=== PATIENT | male | born 1975 | race Caucasian/White ===

== ENCOUNTER 2022-02-02 15:57 | Inpatient (IN) | payer BC ==
[~2022-02-02] VITALS: Ht 180.3 cm; Wt 47.3 kg
--- NOTE | 2022-02-02 16:08 | NUR ---
Patient to ER bed 5 to gown for evaluation. Side rails up. Report given to Joyce FERREIRA.
--- NOTE | 2022-02-02 16:10 | NUR ---
ER at bedside examining patient.
[2022-02-02 16:13] VITALS: BP_SYST 102
[2022-02-02] MEDS ORDERED: FOLIC ACID 5 MG/ML VIAL IV ONE (16:15)
[2022-02-02] MEDS ORDERED: THIAMINE HCL 100 MG/ML VIAL IM ONE (16:15)
--- NOTE | 2022-02-02 16:15 | NUR ---
Pt BIBA ACLS coming from home due to family stating pt is more altered than usual. Pt has hx of alcohol abuse liver issues. Pt is A&Ox1. Confused to responding all questions except for his name. Skin intact. VSS. No chest pain and no sob. Bed in lowest position. Pt has a 18g IV placed by medics in route on left forearm.
--- NOTE | 2022-02-02 17:02 | NUR ---
Covid swab and MRSA swab done and sent to lab.
--- NOTE | 2022-02-02 17:05 | NUR ---
Accucheck done and results were 95
[2022-02-02 17:12] LABS: HEMATOCRIT 31.7 % (36-54); HEMOGLOBIN 10.6 g/dL (14.0-18.0); MEAN CORPUSCULAR HEMOGLOBIN 35 pg (27-31); MEAN CORPUSCULAR HGB CONC 34 % (32-36); MEAN CORPUSCULAR VOLUME 104 fL (79.0-98.0); PLATELET COUNT (AUTO) 147 K/uL (130-430); RED BLOOD CELL COUNT(AUTO) 3.06 MIL/uL (4.2-6.2); RED CELL DISTRIBUTION WIDTH 22.5 % (9.0-15.0); WHITE BLOOD COUNT (AUTO) 3.8 K/uL (4.8-10.8)
[2022-02-02 17:14] LABS: ANION GAP 8 (5-15); CALCIUM 7.4 mg/dL (8.4-11.0); CHLORIDE 102 mmol/L (98-107); CREATININE 0.57 mg/dL (0.55-1.30); GLUCOSE 105 mg/dL (70-99); INR 1.1 (0.80-1.20); POTASSIUM 3.8 mmol/L (3.5-5.1); PROTHROMBIN TIME 11.3 SECS (9.5-12.5); SODIUM SERUM 135 mmol/L (136-145)
[2022-02-02] MEDS ORDERED: LORazepam 2 MG/ML VIAL ONE (17:19)
[2022-02-02 17:21] LABS: ACETAMINOPHEN 2 ug/mL (1-30); ALANINE AMINOTRANSFERASE 37 U/L (12-78); ALBUMIN 2.3 g/dL (3.4-4.8); ASPARTATE AMINOTRANSFERASE 65 U/L (10-37); TOTAL BILIRUBIN 1.3 mg/dL (0.0-1.0)
--- NOTE | 2022-02-02 17:25 | NUR ---
Pt had a witnessed seizure. Dr. Horn notified. at bedside. 2mg Ativan IV medication given and seizure pads placed. Pt placed in semifowlers position. VSS. Dr. Horn at bedside.
[2022-02-02 17:26] LABS: ALCOHOL, BLOOD < 3 mg/dL (<10); GFR AFRICAN AMERICAN 200 mL/min (>90)
--- NOTE | 2022-02-02 17:29 | NUR ---
Accucheck done again and results were 90.
[2022-02-02] MEDS ORDERED: LORazepam 2 MG/ML VIAL IVP ONE (17:30)
--- NOTE | 2022-02-02 17:34 | NUR ---
Personal Belonging List Completed.
[2022-02-02 18:02] LABS: UREA NITROGEN, BLOOD 4 mg/dL (8-21)
[2022-02-02] MEDS ORDERED: NACL 0.9% 1,000 ML IV ONE ×2 (19:15→20:15)
--- NOTE | 2022-02-02 19:18 | NUR ---
rec rprt from Carmela FERREIRA
[2022-02-02 19:29] LABS: BAND % (MANUAL) 1 % (0-6); BASOPHILS % (MANUAL) 0 % (0-2); EOSINOPHILS % (MANUAL) 0 % (0-7); LYMPHOCYTES % (MANUAL) 18 % (20-46); MONOCYTES % (MANUAL) 13 % (0-11)
--- NOTE | 2022-02-02 20:10 | NUR ---
Admit bed requested Patient will be admitted to care of [ [facility]]. Admitted to [TELEMETRY] unit. Diagnosis [NEW SEIZURE ONSET] Inpatient (Yes or No) [YES] Observation (Yes or No) [NO] Orientation concerns or request close to nursing station (Yes or No) [NO] Covid Status [NEG] On vent or bipap [NO] Isolation requirements [NO] Needs a sitter [NO] From Home (Yes or if No enter name of facility) [HOME] Requires Dialysis (Yes or No) [NO] Med Rec Completed (Yes of No) [YES]
--- NOTE | 2022-02-02 20:12 | NUR ---
PT STATED DOES NOT TAKE ANY DAILY MEDICATIONS. RECNCILE OF MEDS WAS NOT DONE FOR THIS REASON
[2022-02-02] MEDS ORDERED: MUPIROCIN 2% TOPICAL OINTMENT 22 GM NS PRN (20:15)
[2022-02-02] MEDS ORDERED: MAGNESIUM SULFATE 50 ML IV PRN (20:15)
[2022-02-02] MEDS ORDERED: ONDANSETRON HCL 4 MG/2 ML VIAL IVP PRN (20:15)
[2022-02-02] MEDS ORDERED: LORazepam 2 MG/ML VIAL IVP PRN ×2 (20:15)
[2022-02-02] MEDS ORDERED: ACETAMINOPHEN 325 MG TABLET PO PRN (20:15)
[2022-02-02] MEDS ORDERED: DOCUSATE SODIUM 100 MG CAPSULE PO PRN (20:15)
[2022-02-02] MEDS ORDERED: MORPHINE 2 MG/ML INJ. SYRINGE IVP PRN ×2 (20:15)
--- NOTE | 2022-02-02 20:40 | NUR ---
PT WAS NOTICED TO HAVE VARIABLE HR WITH VARIABLE IN O2 SATURATION, PT CONSICIENSE WAS ABLE TO ANSWER QUESTIONS AND WAS AOX4, VITAL SIGNS ARE STABLE. PT CONTINUES TO BE ON SEIZURE PRECAUTIONS. DR CALVO NOTIFIED. WILL CONTINUE TO MONITOR CLOSELY
--- NOTE | 2022-02-02 22:10 | NUR ---
PT IN BED RESTING COMFORTABLY, BED LOWERED, LOCKED AND RAILS UP. PT IS ALERT AND ORIENTED X4, DENIES ANY PAIN. VS ARE WITHIN NORMAL LIMITS WILL CONTINUE TO MONITOR
[2022-02-02 23:45] VITALS: BP_SYST 120
--- NOTE | 2022-02-02 23:50 | NUR ---
ADMISSION NOTE Received patient from ER via gurney. Patient admitted with diagnosis of new onset seizure. Patient is awake and alert. Patient oriented to hospital room, call light, toileting, pain management and safety-teach back done. Personal belongings checked and Belongings List documented. Call light within reach. Seizure precautions in place.
--- NOTE | 2022-02-03 | NUR ---
Report given to Fiona FERREIRA
[2022-02-03] MEDS: chlordiazePOXIDE HCL 25 MG CAPSULE PO SCH ×4 (01:23→22:06)
--- NOTE | 2022-02-03 07:30 | NUR ---
Closing Patient resting in bed, unlabored breathing on room air. Alert to name and place, states the year is 1974, and that he is here because of vomiting. 1 L NS infusing. Patient had water and small amount of jello, tolerated well with no coughing but needed some assistance. Seizure pads in place, suction set up at bedside. Call light in reach, exit alarm on.
--- NOTE | 2022-02-03 07:30 | NUR ---
RECEIVED PT AAOX4 SLOW TO SPEAK, CAN FOLLOW COMMANDS AND COMMUNICATE NEEDS. SEIZURE PRECAUTIONS IN PLACE. TELE MONITOR READING NSR. RESP E/U. LUNG SOUNDS CTA, ON R/A. NO COUGH OR SOB. ABODMEN SOFT, NONDISTENDED. BOWEL SOUNDS ACTIVE X4 QUADS. DENIES N/V/D/C. DISTAL PULSES NORMAL, SKIN CDI, NO EDEMA. PT HAS LH 22 G WITH NS RUNNING AT 100ML/HOUR. SITE WNL, DRESSING CDI. PT DENIES PAIN. CALL LIGHT WITHIN REACH. BED IN LOWEST POSITION, BED ALARM ON.
[2022-02-03 07:34] LABS: BASOPHILS % (AUTO) 0.6 % (0.0-2.0); EOSINOPHILS % (AUTO) 0.6 % (0.0-4.0); HEMATOCRIT 29.7 % (36-54); HEMOGLOBIN 9.9 g/dL (14.0-18.0); LYMPHOCYTES # (AUTO) 0.8 K/uL (1.0-5.5); MEAN CORPUSCULAR HEMOGLOBIN 35 pg (27-31); MEAN CORPUSCULAR HGB CONC 33 % (32-36); MEAN CORPUSCULAR VOLUME 105 fL (79.0-98.0); MONOCYTES % (AUTO) 22.9 % (1.7-9.3); NEUTROPHILS # (AUTO) 2.6 K/uL (1.8-7.7); NEUTROPHILS % (AUTO) 57.9 % (40.0-70.0); PLATELET COUNT (AUTO) 135 K/uL (130-430); RED BLOOD CELL COUNT(AUTO) 2.83 MIL/uL (4.2-6.2); RED CELL DISTRIBUTION WIDTH 22.4 % (9.0-15.0); WHITE BLOOD COUNT (AUTO) 4.6 K/uL (4.8-10.8)
[2022-02-03 08:00] VITALS: BP_SYST 123
[2022-02-03 08:00] LABS: CREATININE 0.49 mg/dL (0.55-1.30); POTASSIUM 3.8 mmol/L (3.5-5.1)
--- NOTE | 2022-02-03 08:20 | NUR ---
PT NOTED UNABLE TO TOLERATE REGULAR DIET, DUE TO DIFFICULTY CHEWING, PER ORDER TO ADVANCE DIET TOLERATE, DIET HAS BEEN CHANGED TO CHOPPED. PT MADE AWARE.
--- NOTE | 2022-02-03 08:55 | NUR ---
REPORTED TO DR. WILSON, PT HAS HAD PAST HX OF INCREASED AMMONIA BUT NO LAB FOR AMMONIA HAS BEEN TAKEN. PT IS SLOW TO SPEAK AND MOVE BUT CAN ANSWER QUESTIONS APPROPRIATELY AT THIS TIME. PT SWALLOW FINE BUT CAN NOT CHEW WELL DIET HAS BEEN CX TO CHOPPED. NNOS.
--- NOTE | 2022-02-03 08:57 | NUR ---
PT SITTING UP IN BED EATING BREAKFAST, ALL FOOD CHOPPED TO SMALL PIECES FOR PT. PT GIVEN SCHEDULED MED AND TOLERATED WELL, DENIES PAIN. PT GIVEN EDUCATION ON S/S OF IMPENDING SEIZURE, PT ORIENTED TO CALL LIGHT. DENIES PAIN.
[2022-02-03] MEDS ORDERED: levETIRAcetam 1,500 MG in NS 85 ML IV ONE (10:00)
--- NOTE | 2022-02-03 11:25 | NUR ---
PER REQUEST PT'S MOTHER ZAY CALLED AND MADE AWARE TO PT'S POC.
[2022-02-03 12:22] VITALS: BP_SYST 120
--- NOTE | 2022-02-03 16:01 | NUR ---
PT RECEIVING EEG AT THIS TIME.
[2022-02-03 16:55] VITALS: BP_SYST 128
--- NOTE | 2022-02-03 17:15 | NUR ---
PT'S BEDDING AND GOWN CHANGE, PT ABLE TO TURN AND REPOSITION IN BED.
--- NOTE | 2022-02-03 17:30 | NUR ---
PT RECEIVING U/S AT THIS TIME.
[2022-02-03 19:01] VITALS: BP_SYST 128
--- NOTE | 2022-02-03 19:28 | NUR ---
ENDORSED ALL CARE TO JHON DURAN. ALL QUESTIONS AND CONCERNS ADDRESSED.
[2022-02-03] MEDS: levETIRAcetam 1,500 MG in NS 85 ML IV SCH (22:06)
[2022-02-04] MEDS: ZOLPIDEM TARTRATE 5 MG TABLET PO PRN ×2 (01:20→07:11)
--- NOTE | 2022-02-04 07:35 | NUR ---
OPEN NOTE Patient laying in bed asleep but easily arousal. No notable signs of distress noted. Patient has no shortness of breath. Patient does not show any signs of pain at this time. Urinal near patients reach and emptied with yellow urine. Patient safety checks in place with call light in place. seizure precautions in place.
[2022-02-04 07:48] LABS: BASOPHILS % (AUTO) 0.9 % (0.0-2.0); EOSINOPHILS # (AUTO) 0.1 K/uL (0.0-0.4); EOSINOPHILS % (AUTO) 1.4 % (0.0-4.0); HEMATOCRIT 29.8 % (36-54); HEMOGLOBIN 10.2 g/dL (14.0-18.0); MEAN CORPUSCULAR HEMOGLOBIN 36 pg (27-31); MEAN CORPUSCULAR HGB CONC 34 % (32-36); MEAN CORPUSCULAR VOLUME 104 fL (79.0-98.0); MONOCYTES % (AUTO) 26.1 % (1.7-9.3); NEUTROPHILS # (AUTO) 1.9 K/uL (1.8-7.7); NEUTROPHILS % (AUTO) 47.6 % (40.0-70.0); PLATELET COUNT (AUTO) 141 K/uL (130-430); RED BLOOD CELL COUNT(AUTO) 2.88 MIL/uL (4.2-6.2); RED CELL DISTRIBUTION WIDTH 20.5 % (9.0-15.0)
[2022-02-04 08:07] LABS: CREATININE 0.52 mg/dL (0.55-1.30); POTASSIUM 3.1 mmol/L (3.5-5.1)
[2022-02-04 08:10] VITALS: BP_SYST 98
[2022-02-04] MEDS: levETIRAcetam 1,500 MG in NS 85 ML IV SCH ×2 (09:11→22:05)
[2022-02-04] MEDS: chlordiazePOXIDE HCL 25 MG CAPSULE PO SCH ×3 (09:11→22:04)
[2022-02-04] MEDS: POTASSIUM CHLORIDE 20 MEQ TAB.PRT.SR PO PRN (10:31)
--- NOTE | 2022-02-04 11:00 | NUR ---
Patient was asked if he would like a shave and bed bath but at the moment he refused.
[2022-02-04 12:00] VITALS: BP_SYST 89
--- NOTE | 2022-02-04 12:00 | NUR ---
Patient status Patient comfortable in bed, resting. No signs and symptoms of distress noted. Seizure precautions placed. All needs met and safety checks in place. Will continue to monitor.
[2022-02-04 16:01] VITALS: BP_SYST 86
--- NOTE | 2022-02-04 16:03 | NUR ---
Patient status Patient comfortable in bed, resting. Family at bedside. No signs and symptoms of distress noted. Seizure precautions placed. All needs met and safety checks in place. Will continue to monitor.
--- NOTE | 2022-02-04 18:28 | NUR ---
CLOSING NOTE Patient resting in bed, eating dinner. No signs of pain or distress noted. No shortness of breath at this time. No seizure during shift. Seizure precautions in place. IV site patent with saline lock. All needs met and safety precautions placed. Bed in lowest position and call light within reach. Will endorse to fast food shift supervisor nurse.
[2022-02-04 21:00] VITALS: BP_SYST 92
--- NOTE | 2022-02-04 23:13 | NUR ---
CONSULTATION PAGED/CALLED Reason for Consultation: RENAL FAILURE Person Who was Notified: [facility] Consulting Physician: HODA Police Booking Officer Specialty: Ordering Physician: AC ULLOA
[2022-02-05 01:00] VITALS: BP_SYST 89
--- NOTE | 2022-02-05 07:32 | NUR ---
OPEN NOTE Patient laying in bed awake resting. No notable signs of distress noted. Patient has no shortness of breath. Patient does not show any signs of pain at this time. Urinal near patients reach, reminded patient to use it. Patient safety checks in place with call light in place. seizure precautions in place.
[2022-02-05 07:44] VITALS: BP_SYST 100
[2022-02-05 08:01] LABS: BASOPHILS % (AUTO) 0.5 % (0.0-2.0); EOSINOPHILS # (AUTO) 0.1 K/uL (0.0-0.4); EOSINOPHILS % (AUTO) 1.3 % (0.0-4.0); HEMATOCRIT 30.8 % (36-54); HEMOGLOBIN 10.5 g/dL (14.0-18.0); LYMPHOCYTES # (AUTO) 0.6 K/uL (1.0-5.5); LYMPHOCYTES % (AUTO) 12.4 % (20.5-51.5); MEAN CORPUSCULAR HEMOGLOBIN 35 pg (27-31); MEAN CORPUSCULAR HGB CONC 34 % (32-36); MEAN CORPUSCULAR VOLUME 104 fL (79.0-98.0); MONOCYTES # (AUTO) 0.7 K/uL (0.0-1.0); MONOCYTES % (AUTO) 14.3 % (1.7-9.3); NEUTROPHILS # (AUTO) 3.6 K/uL (1.8-7.7); NEUTROPHILS % (AUTO) 71.5 % (40.0-70.0); PLATELET COUNT (AUTO) 156 K/uL (130-430); RED BLOOD CELL COUNT(AUTO) 2.97 MIL/uL (4.2-6.2); RED CELL DISTRIBUTION WIDTH 20.4 % (9.0-15.0)
[2022-02-05 08:38] LABS: CALCIUM 7.2 mg/dL (8.4-11.0); CREATININE 0.52 mg/dL (0.55-1.30); POTASSIUM 3.2 mmol/L (3.5-5.1)
[2022-02-05] MEDS ORDERED: POTASSIUM CHLORIDE 20 MEQ TAB.PRT.SR PO ONE (09:00)
[2022-02-05] MEDS ORDERED: MAGNESIUM SULFATE 50 ML IV ONE (09:00)
[2022-02-05] MEDS: chlordiazePOXIDE HCL 25 MG CAPSULE PO SCH ×3 (09:06→22:30)
[2022-02-05] MEDS: levETIRAcetam 1,500 MG in NS 85 ML IV SCH ×2 (09:07→22:30)
[2022-02-05] MEDS: POTASSIUM CHLORIDE 20 MEQ TAB.PRT.SR PO PRN (09:14)
[2022-02-05 12:20] VITALS: BP_SYST 101
[2022-02-05 16:10] VITALS: BP_SYST 93
--- NOTE | 2022-02-05 18:19 | NUR ---
CLOSING NOTE Patient resting in bed, eating dinner with family at bedside. No signs of pain or distress noted. No shortness of breath at this time. No seizure during shift. Seizure precautions in place. IV site patent with saline lock. All needs met and safety precautions placed. Bed in lowest position and call light within reach. Will endorse to special education preschool teacher nurse.
[2022-02-05 21:00] VITALS: BP_SYST 101
--- NOTE | 2022-02-05 22:05 | NUR ---
KEPPRA 1.5 GM IVPB administer as ordered side Rails Remain padded patient awake alert family is at the bedside / .
[2022-02-06 01:00] VITALS: BP_SYST 110
--- NOTE | 2022-02-06 03:07 | NUR ---
Hourly Rounding patient Resting is verbally Responsive side Rails remain padded no visual seizure activity noted / .
--- NOTE | 2022-02-06 04:46 | NUR ---
FALL SEIZURE precautions measures in place , Hourly Rounding patient Resting HOB elevated Respirations Remain Regular also unlabored / .
--- NOTE | 2022-02-06 07:16 | NUR ---
OPENING NOTE RECEIVED SBAR FROM NIGHT RN, PATIENT IN BED, RESPIRATIONS EVEN, NON LABORED, BED IN LOW AND LOCKED POSITION CALL LIGHT WITHIN REACH, BED ALARM ON
[2022-02-06 07:29] LABS: BASOPHILS % (AUTO) 0.5 % (0.0-2.0); EOSINOPHILS # (AUTO) 0.1 K/uL (0.0-0.4); EOSINOPHILS % (AUTO) 1.4 % (0.0-4.0); HEMOGLOBIN 10.2 g/dL (14.0-18.0); LYMPHOCYTES # (AUTO) 0.7 K/uL (1.0-5.5); LYMPHOCYTES % (AUTO) 16.1 % (20.5-51.5); MEAN CORPUSCULAR HEMOGLOBIN 35 pg (27-31); MEAN CORPUSCULAR HGB CONC 34 % (32-36); MEAN CORPUSCULAR VOLUME 103 fL (79.0-98.0); MONOCYTES # (AUTO) 0.5 K/uL (0.0-1.0); MONOCYTES % (AUTO) 10.8 % (1.7-9.3); NEUTROPHILS # (AUTO) 3.1 K/uL (1.8-7.7); NEUTROPHILS % (AUTO) 71.2 % (40.0-70.0); PLATELET COUNT (AUTO) 164 K/uL (130-430); RED CELL DISTRIBUTION WIDTH 20.1 % (9.0-15.0); WHITE BLOOD COUNT (AUTO) 4.3 K/uL (4.8-10.8)
[2022-02-06 07:57] LABS: CALCIUM 7.3 mg/dL (8.4-11.0); CREATININE 0.38 mg/dL (0.55-1.30); POTASSIUM 3.2 mmol/L (3.5-5.1)
[2022-02-06 08:00] VITALS: BP_SYST 100
[2022-02-06] MEDS: chlordiazePOXIDE HCL 25 MG CAPSULE PO SCH ×3 (08:49→21:14)
[2022-02-06] MEDS: levETIRAcetam 1,500 MG in NS 85 ML IV SCH ×2 (08:51→21:28)
--- NOTE | 2022-02-06 11:41 | NUR ---
md dr osman bedside examining patient
[2022-02-06] MEDS: POTASSIUM CHLORIDE 20 MEQ TAB.PRT.SR PO PRN (11:43)
[2022-02-06 12:00] VITALS: BP_SYST 110
--- NOTE | 2022-02-06 13:56 | NUR ---
CALLED MD CALLED DR HESS REGARDING NEW RASH ON PATIENTS FACE, RED, DRY. SPOKE WITH EXCHANGE, WILL PAGE DR STORY HE IS COVERING
--- NOTE | 2022-02-06 14:52 | NUR ---
NURSE NOTE PATIENT INCONTINENT OF BLADDER, PROVIDED MACY CARE, CHANGED LINENS, REPOSITIONED PATIENT WITH PILLOW SUPPORT
[2022-02-06 16:00] VITALS: BP_SYST 105
--- NOTE | 2022-02-06 17:12 | NUR ---
SPOKE WITH DR HESS REGARDING PATIENTS RASH ON FACE. NEW ORDERS RECEIVED
[2022-02-06] MEDS ORDERED: DIPHENHYDRAMINE INJ 50 MG/ML VIAL IVP ONE (17:30)
[2022-02-06 19:00] VITALS: BP_SYST 96
--- NOTE | 2022-02-06 19:28 | NUR ---
CLOSING NOTE PROVIDED SBAR TO NIGHT RN, PATIENT IN BED, RESPIRATIONS EVEN, NON LABORED, BED IN LOW AND LOCKED POSITION, CALL LIGHT WITHIN REACH, BED ALARM ON, ENDORSED CARE TO NIGHT RN.
[2022-02-07] VITALS: BP_SYST 96
[2022-02-07 04:00] VITALS: BP_SYST 103
[2022-02-07 06:08] LABS: BASOPHILS % (AUTO) 0.6 % (0.0-2.0); HEMOGLOBIN 9.6 g/dL (14.0-18.0); LYMPHOCYTES # (AUTO) 0.9 K/uL (1.0-5.5); LYMPHOCYTES % (AUTO) 22.1 % (20.5-51.5); MEAN CORPUSCULAR HEMOGLOBIN 35 pg (27-31); MEAN CORPUSCULAR HGB CONC 34 % (32-36); MEAN CORPUSCULAR VOLUME 102 fL (79.0-98.0); MONOCYTES # (AUTO) 0.5 K/uL (0.0-1.0); MONOCYTES % (AUTO) 11.7 % (1.7-9.3); NEUTROPHILS # (AUTO) 2.5 K/uL (1.8-7.7); NEUTROPHILS % (AUTO) 64.6 % (40.0-70.0); PLATELET COUNT (AUTO) 176 K/uL (130-430); RED BLOOD CELL COUNT(AUTO) 2.73 MIL/uL (4.2-6.2); WHITE BLOOD COUNT (AUTO) 3.9 K/uL (4.8-10.8)
[2022-02-07 06:45] LABS: CALCIUM 7.1 mg/dL (8.4-11.0); CREATININE 0.46 mg/dL (0.55-1.30); POTASSIUM 3.1 mmol/L (3.5-5.1)
[2022-02-07 08:00] VITALS: BP_SYST 97
[2022-02-07] MEDS ORDERED: LEVE1000 PO (08:55)
[2022-02-07] MEDS ORDERED: POTASSIUM CHLORIDE 40 MEQ in 0.45% NS 250 ML IV ONE (09:00)
[2022-02-07] MEDS ORDERED: levETIRAcetam 500 MG TABLET PO SCH (09:00)
--- NOTE | 2022-02-07 10:05 | NUR ---
Discharge Planning: DCP faxed pt referral to [facility] [phone], [facility] [phone], [facility] [phone], [facility] [phone] DCP to follow Addendum: 02/07/22 at 1210 by Dulce De Leon DP [facility] [phone] would like up date PT notes, also [facility] will require OT and doctor to review per [facility] VICKY Atkinson [phone], [facility] [phone]-accepted pt. DCP made CM aware. Addendum: 02/07/22 at 1423 by Dulce De Leon DP [facility] [phone] waiting for updated PT notes, [facility] [phone]-will accept pt, [facility] [phone]-accept pt , [facility] [phone]- no male beds.
[2022-02-07] MEDS: POTASSIUM CHLORIDE 20 MEQ TAB.PRT.SR PO PRN (10:27)
[2022-02-07] MEDS: chlordiazePOXIDE HCL 25 MG CAPSULE PO SCH ×3 (10:27→20:58)
[2022-02-07] MEDS: levETIRAcetam 500 MG TABLET PO SCH ×2 (10:27→20:58)
--- NOTE | 2022-02-07 15:00 | NUR ---
Mr Shelley had a short period of time that he was difficult to arouse. VSS blood sugar within normal limits. He answered questions with a mumble. After he settled form being aroused by a very cold towel to his face. He began to snore and remained easily arouse-able thereafter with his eye slightly open
--- NOTE | 2022-02-07 15:52 | NUR ---
Patient's mother requested OT evaluation for [facility] to review for acceptance. Dr Manzo gave the order for OT evaluation.
[2022-02-07] MEDS: POTASSIUM CHLORIDE 20 mEq in 100 mL (PREMIX) 100 ML x 2 doses IV SCH ×2 (15:54→18:53)
[2022-02-07 16:00] VITALS: BP_SYST 105
--- NOTE | 2022-02-07 18:15 | NUR ---
Mr Shelley has been assessed as indicated. He is very weak and thin. He declined the MD offer of peg tube placement. He states that he will take oral supplements. At this time he needs assistance with eating and has difficulty holding and drinking from a cup of water. He had several small BM both in bed as well as bed roblero. He is incontinent of bladder. He had a Low potassium level and was provided a supplement. He was visited by his mother and sister to day. The plan for his is a rehab facility. he is presently resting quietly
[2022-02-07 19:00] VITALS: BP_SYST 96
--- NOTE | 2022-02-07 19:15 | NUR ---
Handoff has been given to Amish Alejandra
[2022-02-08] VITALS: BP_SYST 96
[2022-02-08 04:00] VITALS: BP_SYST 105
[2022-02-08 06:01] LABS: BASOPHILS % (AUTO) 0.9 % (0.0-2.0); EOSINOPHILS % (AUTO) 1.5 % (0.0-4.0); HEMATOCRIT 29.4 % (36-54); HEMOGLOBIN 10.1 g/dL (14.0-18.0); LYMPHOCYTES # (AUTO) 0.9 K/uL (1.0-5.5); MEAN CORPUSCULAR HEMOGLOBIN 35 pg (27-31); MEAN CORPUSCULAR HGB CONC 34 % (32-36); MEAN CORPUSCULAR VOLUME 102 fL (79.0-98.0); MONOCYTES # (AUTO) 0.4 K/uL (0.0-1.0); MONOCYTES % (AUTO) 12.1 % (1.7-9.3); NEUTROPHILS # (AUTO) 1.7 K/uL (1.8-7.7); NEUTROPHILS % (AUTO) 55.5 % (40.0-70.0); PLATELET COUNT (AUTO) 179 K/uL (130-430); RED BLOOD CELL COUNT(AUTO) 2.87 MIL/uL (4.2-6.2); RED CELL DISTRIBUTION WIDTH 19.9 % (9.0-15.0); WHITE BLOOD COUNT (AUTO) 3.1 K/uL (4.8-10.8)
[2022-02-08 06:41] LABS: CALCIUM 8.1 mg/dL (8.4-11.0); CREATININE 0.39 mg/dL (0.55-1.30); POTASSIUM 3.5 mmol/L (3.5-5.1)
[2022-02-08 08:00] VITALS: BP_SYST 100; BP_SYST 105
[2022-02-08] MEDS: chlordiazePOXIDE HCL 25 MG CAPSULE PO SCH ×3 (09:18→21:58)
[2022-02-08] MEDS: levETIRAcetam 500 MG TABLET PO SCH ×2 (09:18→21:58)
[2022-02-08 12:00] VITALS: BP_SYST 105
--- NOTE | 2022-02-08 16:31 | NUR ---
Wound Evaluation: Wound Consult ordered for Low Isai Score. Patient evaluated for a low Isai score of 12. Patient was awake, alert, confused, and received in a [place] Bed with an IsoFlex RAQUEL mattress. Patient needs max assist to turn in bed secondary to weakness and pain. Skin assessment: 1. Sacral area: Blanchable redness from IAD, present on admission. Small amount of nonintact skin present (IAD/MASD) measuring less than 0.1 cm x 0.1 cm with pink tissue present on right Sacral area. Recommend: Cleanse involved area with mild soap and water. Pat dry. Cover Sacral-Coccygeal site with 4 x 4 foam dressing. Apply moisture barrier cream around dressing site. Perform site care daily and as needed for dressing soiling or dislodgment. 2. Left Buttock near Ischium: Blanchable redness from IAD, present on admission. Recommend: Cleanse involved area with mild soap and water. Pat dry. Apply moisture barrier cream to involved area. Perform site care 4 times daily and as needed for soiling. Also recommend: Encourage and assist patient with repositioning side to side only every 2 hours with pillow support. Elevate, off-load and float bilateral heels with pillows. Offload pressure areas with pillows for pressure re-distribution. Perform skin care and monitor skin integrity Q shift. Use moisture barrier cream on moisture susceptible areas QID and PRN for soiling. Initiate low air-loss therapy by adding an air pump to the mattress.
--- NOTE | 2022-02-08 18:45 | NUR ---
Mr Shelley has been assessed as indicated. He has been assisted with meals. his bed has been changed to bed C in the same room at his request. He has been assisted with meals this shift. This keno writer / runner spoke with his mother today to provide the available update related to transfer to the rehab facility of her choice. Efforts have been made to assist her to under stand the process for transfer. At this time case management is waiting to hear from the facility regarding acceptance. A covid swab has been collected this shift. He is resting quietly at this time
--- NOTE | 2022-02-08 19:46 | NUR ---
handoff has been given to Carley
[2022-02-08 20:10] VITALS: BP_SYST 87
--- NOTE | 2022-02-08 20:20 | NUR ---
Opening notes Pt lethargic, BP 87/54 HR 84. IV saline lock R. FA 22G. Pt incontinent of urine, pericare provided, sacral optifoam dressing C/D/I. Call light within reach. Seizure precaution in place. Will page . To monitor.
--- NOTE | 2022-02-08 20:46 | NUR ---
YOVANNY Manzo re pt's BP 87/54, pt awake, arousable. Awaiting callback.
--- NOTE | 2022-02-08 20:48 | NUR ---
Received callback Rec'd Dr. Manzo callback re pt's low BP. Order received for 1L NS bolus x1 and hold any BP meds. Will carry out.
[2022-02-08 21:00] VITALS: BP_SYST 103
[2022-02-08] MEDS ORDERED: NACL 0.9% 1,000 ML IV ONE (21:00)
[2022-02-09 00:22] VITALS: BP_SYST 104
--- NOTE | 2022-02-09 03:30 | NUR ---
Rounds Pt awake, watching TV, no s/s distress noted. Call light within reach. Bed low, locked, siderails up x3, alarm on. To monitor.
[2022-02-09 06:21] LABS: BASOPHILS % (AUTO) 1.3 % (0.0-2.0); EOSINOPHILS # (AUTO) 0.1 K/uL (0.0-0.4); EOSINOPHILS % (AUTO) 1.9 % (0.0-4.0); HEMATOCRIT 30.6 % (36-54); HEMOGLOBIN 10.5 g/dL (14.0-18.0); LYMPHOCYTES % (AUTO) 34.5 % (20.5-51.5); MEAN CORPUSCULAR HEMOGLOBIN 35 pg (27-31); MEAN CORPUSCULAR HGB CONC 34 % (32-36); MEAN CORPUSCULAR VOLUME 103 fL (79.0-98.0); MONOCYTES # (AUTO) 0.4 K/uL (0.0-1.0); MONOCYTES % (AUTO) 12.8 % (1.7-9.3); NEUTROPHILS # (AUTO) 1.5 K/uL (1.8-7.7); NEUTROPHILS % (AUTO) 49.5 % (40.0-70.0); PLATELET COUNT (AUTO) 185 K/uL (130-430); RED BLOOD CELL COUNT(AUTO) 2.98 MIL/uL (4.2-6.2)
--- NOTE | 2022-02-09 06:30 | NUR ---
Closing notes Pt asleep, no s/s distress noted. Wound photo taken of small skin tear to sacral/coccyx area. Covered with 4x4 foam dressing and pt repositioned with rolled blanket. Raymond heels maintained floated. Pillow placed between legs. Safety maintained. To endorse to AM nurse.
[2022-02-09 06:50] LABS: CALCIUM 8.3 mg/dL (8.4-11.0); CREATININE 0.36 mg/dL (0.55-1.30); POTASSIUM 3.6 mmol/L (3.5-5.1)
[2022-02-09 07:55] VITALS: BP_SYST 95
--- NOTE | 2022-02-09 07:57 | NUR ---
OPENING NOTES: PATIENT RESTING IN BED. HOB ELEVATED. BREATHING EVEN AND NON LABORED TO RA. FALL, SAFETY AND ASPIRATION MEASURES REINFORCED. CALL LIGHT WITHIN REACH.
[2022-02-09] MEDS: chlordiazePOXIDE HCL 25 MG CAPSULE PO SCH (08:05)
[2022-02-09] MEDS: levETIRAcetam 500 MG TABLET PO SCH (08:05)
--- NOTE | 2022-02-09 11:00 | NUR ---
RN NOTES: INCONTINENT CARE DONE. NO S/S OF ACUTE DISTRESS NOTED. FALL AND SAFETY MEASURES RENDERED. CALL LIGHT WITHIN REACH.
[2022-02-09 12:24] VITALS: BP_SYST 91
--- NOTE | 2022-02-09 14:52 | NUR ---
Discharge Planning: YOVANIP arranged transport with [facility] 8:00pm to [facility] [phone] Rm [id number]. DCP made CM and nurse aware. Patient packet taken to nurse station.
[2022-02-09 15:59] VITALS: BP_SYST 101
[2022-02-09 16:22] VITALS: BP_SYST 94
--- NOTE | 2022-02-09 16:59 | NUR ---
Pt. was seen for OT evaluation, alert and agreeable. Patient was cooperative, demied any pain during and after eval. Nursing notified. Per nursing, patient will be d/c to [facility].
--- NOTE | 2022-02-09 17:51 | NUR ---
SPOKE TO ARIANNE AT [facility]: REPORT GIVEN TO ARIANNE AT [facility].
--- NOTE | 2022-02-09 18:59 | NUR ---
CLOSING NOTES: PATIENT RESTING IN BED. NO S/S OF ACUTE DISTRESS NOTED. DENIES ANY DISCOMFORT AT THIS TIME. FALL AND SAFETY MEASURES PROVIDED. CALL LIGHT WITHIN . NEEDS MET THROUGHOUT SHIFT. WILL CONTINUE MONITOR UNTIL ENDORSE TO [facility] OPERATOR RN.
--- NOTE | 2022-02-09 20:29 | NUR ---
D/C Patient [facility] at station. Patient given medication reconciliation form and D/C instructions. Exit Care provided. Patient verbalized understanding. MD discussed with patient the results and treatment provided. Patient in stable condition, Tele box removed, ID band removed. IV catheter removed, intact and dressing applied, no active bleeding. Patient educated on pain management. All belongings sent with patient. Pt to go to [facility] room 1205X.
--- NOTE | 2022-02-10 08:23 | NUR ---
Dispo code 03
== END 2022-02-09 20:35 | DRG 441 ==
LOC: SED 15:57 → STU 20:13
PROVIDERS: ADMIT General Practice; ATTEND General Practice
PROC: 4A10X4Z Monitoring of Central Nervous Electrical Activity, External Approach (ICD-10-PCS; principal; 2022-02-03)
DX: K72.90 Hepatic failure, unspecified without coma (principal); E43 Unspecified severe protein-calorie malnutrition; E87.2 Acidosis; E87.1 Hypo-osmolality and hyponatremia; Z68.1 Body mass index [BMI] 19.9 or less, adult; G40.909 Epilepsy, unspecified, not intractable, without status epilepticus; F10.10 Alcohol abuse, uncomplicated; Y90.9 Presence of alcohol in blood, level not specified; E88.09 Other disorders of plasma-protein metabolism, not elsewhere classified; R74.01 Elevation of levels of liver transaminase levels; E80.6 Other disorders of bilirubin metabolism; Z20.822 Contact with and (suspected) exposure to COVID-19; F17.200 Nicotine dependence, unspecified, uncomplicated; Z88.0 Allergy status to penicillin
CPT/HCPCS: 36415; 70450-TC; 71045; 76376; 76700-TC; 80048; 80053; 82140; 82962; 83605; 83735; 84484; 85007; 85025; 85027; 85610-TC; 85730-TC; 87081; 93005; 95816; 96361; 96372; 96374; 96375; 97110-GP; 97116-GP; 97530-GP; 99285; G0378; G0480; G0482; J1200; J1953; J2060; J3411; J3475; J3480; J3490